=== PATIENT | female | born 1940 | race Caucasian/White ===

== ENCOUNTER 2016-07-12 14:56 | Inpatient (IN) | payer MEDICARE, OTHER ==
--- NOTE | ~2016-07-12 | IDS ---
Interim Discharge Summary [facility] [address] [place]. [address] NAME: BETTY DALY : 38 STATUS : DIS IN PAT#: [id number] AGE: 75 ADM/REG DATE : 07/12/16 MR#: [id number] REPORT SERV DATE: 07/17/16 DICTATED BY: SACHI HARDIN DATE: 07/17/16 REPORT STATUS : Draft TRANSCRIBED BY: MODL DATE: 07/17/16 ADMISSION DATE: 07/12/2016 DISCHARGE DATE: 07/13/2016 DISCHARGE DIAGNOSES: Resolved sepsis; urinary tract infection, resolved; shock; she has dementia and altered mental status; had adrenal insufficiency, on steroid taper; hypothyroidism; dysphagia; previous history of lymphoma, has been treated; anemia and thrombocytopenia. The patient was in the ICU. Further states, she was treated appropriately for Klebsiella with Azactam. She was given steroids. These improved. However, her mental status remains the same and it was felt that she was not going to make anymore marked improvements. She had Klebsiella and E coli sepsis. LABORATORY DATA: Today shows sodium 140, potassium 3.8, chloride 103, CO2 of 28, BUN 23, creatinine 0.94, glucose 157. H and H 7.6 and 21.7, white count 14,900, and platelet count 40,000. IMPRESSION: Persistent thrombocytopenia; anemia; history of lymphoma. Ejection fraction is 60%. She was getting ProcalAmine, her oral intake has been extremely poor for a long time. She is a [id number] status. This has been accepted by her . SOPHIE/ADITYA Sachi Hardin M.D. / [id number] CC: DO Deny Goodson MD
--- NOTE | ~2016-07-12 | HP ---
History And Physical [place] [id number] [facility] [place]. [address] NAME: BETTY DALY : 39 STATUS : ADM IN [facility]#: [id number] AGE: 75 ADM/REG DATE : 07/12/16 MR#: [id number] REPORT SERV DATE: 07/13/16 DICTATED BY: HEIDE KESSLER DATE: 07/12/16 REPORT STATUS : Draft TRANSCRIBED BY: MODMaribeth DATE: 07/12/16 DATE OF ADMISSION: 07/12/2016 CHIEF COMPLAINT: Confusion over 48 hours. HISTORY OF PRESENT ILLNESS: The patient is a 75-year-old female, who comes from [facility] with past medical history of lymphoma in remission, additionally Pseudomonas UTI in the past, chronic debility, chronic pain syndrome, restless leg, hypothyroidism, hypertension, who presents after having progressive decline particularly by her noticed over the last 48 to 72 hours. Is not quite acting herself. Decreased p.o. intake over the last few months, as the patient has chronic diarrhea episodes. reports that she has had a bout of C diff and feels this may be C diff related due to her malnutrition, symptoms of confusion or inappropriate verbal responses to questioning. The patient denies any chest pain or radiating symptoms. Has had rash at groin area requiring multiple clean ups with stool and urine. There are no worsening or relieving symptoms. Symptoms are still currently present. The patient does appear fairly weak and frail. REVIEW OF SYSTEMS: Difficult to obtain secondary to mental status. PAST MEDICAL HISTORY: Obtained from chart records noted for ORIF of left hip, right humeral fracture, lymphoma in remission, chronic pain, restless leg, hypothyroidism, and hypertension. SURGICAL HISTORY: ORIF and humeral fracture. Does have port placement on chest wall. FAMILY HISTORY: Stroke and gangrenous gallbladder. SOCIAL HISTORY: Transferred from [facility]. No smoking, alcohol, or illicits. . 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 ALLERGIES: PENICILLIN, SULFA, MORPHINE, AND CODEINE. MEDICATIONS: Amlodipine, aspirin, Lipitor, calcium citrate, Coreg, Nexium, fentanyl, ferrous sulfate, [place], Symax, Synthroid, melatonin, Remeron, multivitamin, nystatin, Klor-Con, and Mirapex. PHYSICAL EXAMINATION: VITAL SIGNS: Systolic 110/50s, but has had variable difficulty with obtaining repeat blood pressure secondary to history of surgeries on arms and pain, and requesting not to take anymore blood pressures on the arm per nurses; heart rate 70s; respiratory rate 16, afebrile. However, repeats systolics very fluctuant even on manual ranging from low counts of 60s up to 100s, but faint vascular secondary to edema. GENERAL: The patient is in no acute distress, but fairly quite disoriented. HEENT: Pale eyes. Sunken fontanelle. ENT, temporal wasting. Dry mucous membranes. RESPIRATORY: Rhonchi diffusely. History And Physical [place] [id number] [facility] [place] [place]. [address] NAME: BETTY DALY : 39 STATUS : ADM IN [facility]#: [id number] AGE: 75 ADM/REG DATE : 07/12/16 MR#: [id number] REPORT SERV DATE: 07/13/16 DICTATED BY: HEIED KESSLER DATE: 07/12/16 REPORT STATUS : Draft TRANSCRIBED BY: ADITYA DATE: 07/12/16 CV: Regular rate. Mildly baseline hypotensive side. GI: Mildly distended. No tenderness. : Does have groin rash bilaterally. MUSCULOSKELETAL: Does have bilateral edema in lower extremities. Does move extremities. SKIN: Warm and dry. LYMPH: No cervical or supraclavicular lymphadenopathy. HEME: Does have mild bruising sites. NEURO: Disoriented. Difficult to redirect. Difficult to assess full due to mental status, but eyes equal, symmetrical smile. PSYCH: Unable to assess mood and affect very well. LABORATORY DATA: CBC; WBC count 15.9, H and H 11.3 and 32.3, platelets 70. INR 1.7. Urinalysis, large leukocyte esterase and nitrites. CMP; sodium of 137, potassium 5.9, BUN and creatinine 22 and 0.8, calcium of 6.9, alkaline phosphatase 224. LFTs within normal limits. Troponin negative. CT abdomen and pelvis moderate to large right and moderate left pleural effusions with compressive atelectasis. Diffuse subcutaneous edema. Anasarca throughout the chest, abdomen, and pelvis. Small ascites in the abdomen. Hepatic steatosis. Brain without contrast. No acute infarct or hemorrhage. Mild atrophy and chronic white matter gliosis. Portable chest, low lung volumes. Bilateral perihilar and bibasilar atelectasis. Left Port-A-Cath. ASSESSMENT AND PLAN: 1. Urinary tract infection with Pseudomonas history. Start cefepime. Check lactate. 2. Acute metabolic encephalopathy. CT negative. Optimize electrolytes. Treat urinary tract infection. The patient does have variable blood pressure. We will need to optimize before allowing transfer out of emergency room. 3. Hypocalcemia. Check ionized calcium. Calcium gluconate given in the presence of hyperkalemia. 4. Hyperkalemia. Recheck the patient has been on p.o. supplementation, but in the setting of diarrhea, still should have been slightly low. Again give calcium gluconate and recheck, monitor. Hold p.o. replacements. 5. Thrombocytopenia. Unclear cause of decrease. We will check LDH, fibrinogen, PT, and PTT in the presence of UTI. We will need to monitor very closely. Low threshold for ICU. 6. Protein-calorie malnutrition. Moderate to severe. Ensure with meals. Prealbumin. We will give 5% albumin currently due to anasarca. 7. Pleural effusions. Followup chest x-rays. Albumin given right now. Does have protein- calorie malnutrition. 8. Lymphoma, in remission. The patient does have quite guarded prognosis at this time. Does have POLST form that is reflecting full code. Due to the patient's UTI history of Pseudomonas in the past, have given cefepime, but with constellation of encephalopathy, electrolyte abnormalities, thrombocytopenia, pleural effusions, and delicate blood pressure and vital sign, we may require ICU level if unable to stabilize in the emergency room. History And Physical [address] [address] NAME: BETTY DALY : 38 STATUS : ADM IN [facility]#: [id number] AGE: 75 ADM/REG DATE : 07/12/16 MR#: [id number] REPORT SERV DATE: 07/13/16 DICTATED BY: HEIDE KESSLER DATE: 07/12/16 REPORT STATUS : Draft TRANSCRIBED BY: ADITYA DATE: 07/12/16 DDHeriberto/ADITYA Heide Kessler MD / [id number] CC: DO Deny Goodson MD
[~2016-07-12 14:56] MED LIST: *UNABLE3; APRES50 PO; ASAB PO; BENICAR HCT1 TA2 PO; BISR PR; C5 PO; CARDURA1 MG PO; CAT1 PO; CEFT5 PO; CENTRUM PO; CENTRUM TAB1 TAB PO; CITRACAL PO; COREG PO; COREG25 PO; CYMBALTA60 PO; D.O.S.100 MG PO; DSS PO; DURA50 TOP; FERROUS SULF325 M1 PO; FLAG500TAB PO; FLORASTOR250 MG PO; FLUCON150 PO; FOSAMAX IV; GLUCCHONDR PO; HALF81 PO; JANTOVEN5 MG PO; KDUR20 PO; L20 PO; LEVAQUIN750 MG PO; LEVOTHYROXIN100 MCG PO; LEVOTHYROXIN75 MCG PO; LIPITOR20 PO; MELA3 PO; MIRAPEX1 MG PO; MIRAPEX250 PO; MOMUD PO; MVI PO; NAIL-EX2.5 MG PO; NEXIUM40 PO; NORCO1 TA1 PO; NORCO1 TA2 PO; NORV10 PO; NYSTATIN-TRIAMC15 GM TOP; PCET PO; PERCOCET1 TA4 PO; REQUIP1 PO; REQUIP2 PO; REQUIP5 PO; SOD CHLORIDE1 G1 PO; SYN075 PO; SYN1 PO; THERA M PLUS PO; ZOFRAN ODT4 MG PO
[2016-07-12 15:11] LABS: BASOPHILS 0.1 %; BASOPHILS ABSOLUTE 0.01 10/3/uL (0.0-0.16); EOSINOPHILS 0.2 %; EOSINOPHILS ABSOLUTE 0.03 10/3/uL (0.0-0.53); ER CBC TAT 0 Hrs 08 Mins; HEMATOCRIT 32.3 % (36.0-48.0); HEMOGLOBIN 11.3 g/dL (12.0-16.0); IMMATURE GRANULOCYTES 0.3 %; IMMATURE GRANULOCYTES ABSOLUTE 0.05 10/3/uL (0.0-0.11); LYMPHOCYTES 20.2 %; LYMPHOCYTES ABSOLUTE 3.21 10/3/uL (0.67-4.30); MANUAL DIFF NO %; MEAN CORPUSCULAR HEMOGLOB 32.1 pg (26.0-34.0); MEAN CORPUSCULAR VOLUME 91.8 fL (80-100); MEAN PLATELET VOLUME 12.1 fL (9.2-13.0); MONOCYTES 3.2 %; MONOCYTES ABSOLUTE 0.51 10/3/uL (0.21-1.20); NEUTROPHILS ABSOLUTE 12.07 10/3/uL (2.02-8.40); PLATELET COUNT 70 10/3/uL (150-400); RBC DISTRIBUTION WIDTH 17.4 % (12.0-16.0); RED CELL COUNT 3.52 10/6/uL (4.0-5.6); WHITE BLOOD CELLS 15.9 10/3/uL (4.5-10.5)
[2016-07-12 15:20] LABS: PARTIAL THROMBO TIME 44.8 SEC (22.5-37.2)
[2016-07-12 15:24] LABS: A/G RATIO 0.6 (0.7-1.9); ALBUMIN 1.1 G/DL (3.5-5.0); ALKALINE PHOSPHATASE 224 U/L (45-117); BUN (BLOOD UREA NITROGEN) 22 MG/DL (6-23); CALCIUM, SERUM 6.9 MG/DL (8.5-10.4); CHLORIDE, SERUM 106 MMOL/L (96-112); CO2 (CARBON DIOXIDE) 24 MMOL/L (24-34); GFR AFRICAN AMERICAN 83 ML/MIN (>=60); GFR NON AFRICAN AMERICAN 72 ML/MIN (>=60); GLOBULIN 1.7 G/DL (2.5-4.1); GLUCOSE, SERUM 66 MG/DL (60-99); POTASSIUM, SERUM 5.9 MMOL/L (3.5-5.3); SGOT(AST) 24 U/L (5-40); SGPT(ALT) 22 U/L (5-65); SODIUM, SERUM 137 MMOL/L (135-148); TOTAL BILIRUBIN 0.7 MG/DL (0-1.2); TOTAL PROTEIN 2.8 G/DL (6.0-8.5); TROPONIN I <0.02 NG/ML (<0.05)
[2016-07-12 15:25] LABS: INTERNATIONAL NORMAL RATI 1.7 UNITS (-)
[2016-07-12 15:27] LABS: ASCORBIC ACID (UR NOT ORDER) NEG (NEG); BILIRUBIN, URINE NEGATIVE (NEG); ER URINALYSIS TAT 0 Hrs 23 Mins; KETONE, URINE NEGATIVE (NEG); LEUKOCYTE ESTERASE(NOT OR LARGE (NEG); NITRITE (URINE) POS (NEG); WBC (NOT ORDERED) (RFLEX) > 182 (0-5)
[2016-07-12 15:30] LABS: PROTIME (NOT ORD) 19.8 SEC (12.0-14.5)
[2016-07-12 15:53] LABS: ANISOCYTOSIS 1+ (5-10/OIF) (0-5/OIF); PLATELET ESTIMATE DEC (ADEQUATE)
[2016-07-12 15:56] LABS: MICROCYTES 1+ (5-10/OIF) (0-5/OIF); POLYCHROMASIA 1+ (2-5/OIF) (0-1/OIF)
[2016-07-12 16:12] LABS: TEARDROP SHAPED RBCS OCC (0-2/OIF)
[2016-07-12] MEDS ORDERED: NORV10 PO (16:13)
[2016-07-12] MEDS ORDERED: HALF81 PO (16:13)
[2016-07-12] MEDS ORDERED: LIPITOR20 PO (16:13)
[2016-07-12] MEDS ORDERED: CITRACAL PO (16:14)
[2016-07-12] MEDS ORDERED: COREG25 PO (16:14)
[2016-07-12] MEDS ORDERED: DURA25 TOP (16:15)
[2016-07-12] MEDS ORDERED: FERROUS SULF325 M1 PO (16:17)
[2016-07-12] MEDS ORDERED: SYMAX-SL0.125 MG PO (16:24)
[2016-07-12] MEDS ORDERED: SYN075 PO (16:25)
[2016-07-12] MEDS ORDERED: MELA3 PO (16:27)
[2016-07-12] MEDS ORDERED: REM15 PO (16:28)
[2016-07-12] MEDS ORDERED: NYSTATIN-TRIAMC15 GM TOP (16:30)
[2016-07-12] MEDS ORDERED: NEXIUM40 PO (16:30)
[2016-07-12] MEDS ORDERED: MIRAPEX250 PO (16:31)
[2016-07-12] MEDS ORDERED: KLOR-CON M2020 MEQ PO (16:31)
[2016-07-12] MEDS ORDERED: NORCO1 TA1 PO (16:32)
[2016-07-12] MEDS ORDERED: MULTIVITAMI1 PO (16:32)
[2016-07-12 22:41] LABS: TROPONIN I 0.02 NG/ML (<0.05)
[2016-07-12 23:47] LABS: BUN (BLOOD UREA NITROGEN) 22 MG/DL (6-23); CALCIUM, SERUM 7.1 MG/DL (8.5-10.4); GFR AFRICAN AMERICAN 83 ML/MIN (>=60); GFR NON AFRICAN AMERICAN 72 ML/MIN (>=60)
[2016-07-12 23:49] LABS: CHLORIDE, SERUM 106 MMOL/L (96-112); CO2 (CARBON DIOXIDE) 21 MMOL/L (24-34); GLUCOSE, SERUM 81 MG/DL (60-99); PHOSPHORUS, SERUM 3.1 MG/DL (2.5-4.5); POTASSIUM, SERUM 5.6 MMOL/L (3.5-5.3); SODIUM, SERUM 138 MMOL/L (135-148)
[2016-07-13 00:20] LABS: PROCALCITONIN 0.38 ng/mL (<0.5)
[2016-07-13 04:52] LABS: BUN (BLOOD UREA NITROGEN) 22 MG/DL (6-23); CALCIUM, SERUM 7.2 MG/DL (8.5-10.4); CHLORIDE, SERUM 104 MMOL/L (96-112); CO2 (CARBON DIOXIDE) 22 MMOL/L (24-34); CREATININE 0.79 MG/DL (0.55-1.02); GFR AFRICAN AMERICAN 84 ML/MIN (>=60); GFR NON AFRICAN AMERICAN 73 ML/MIN (>=60); PHOSPHORUS, SERUM 3.5 MG/DL (2.5-4.5); POTASSIUM, SERUM 5.2 MMOL/L (3.5-5.3); SGOT(AST) 23 U/L (5-40); SGPT(ALT) 18 U/L (5-65); SODIUM, SERUM 136 MMOL/L (135-148); TOTAL BILIRUBIN 0.9 MG/DL (0-1.2); TROPONIN I <0.02 NG/ML (<0.05)
[2016-07-13 04:53] LABS: A/G RATIO 1.3 (0.7-1.9); ALKALINE PHOSPHATASE 211 U/L (45-117); GLOBULIN 1.5 G/DL (2.5-4.1); GLUCOSE, SERUM 136 MG/DL (60-99); TOTAL PROTEIN 3.5 G/DL (6.0-8.5)
[2016-07-13 05:43] LABS: INTERNATIONAL NORMAL RATI 1.8 UNITS (-); PROTIME (NOT ORD) 21.1 SEC (12.0-14.5)
[2016-07-13 05:44] LABS: PARTIAL THROMBO TIME 42.1 SEC (22.5-37.2)
[2016-07-14 02:05] LABS: BUN (BLOOD UREA NITROGEN) 20 MG/DL (6-23); CALCIUM, SERUM 7.3 MG/DL (8.5-10.4); CHLORIDE, SERUM 104 MMOL/L (96-112); CO2 (CARBON DIOXIDE) 21 MMOL/L (24-34); CREATININE 0.95 MG/DL (0.55-1.02); GFR AFRICAN AMERICAN 67 ML/MIN (>=60); GFR NON AFRICAN AMERICAN 58 ML/MIN (>=60); PHOSPHORUS, SERUM 4.1 MG/DL (2.5-4.5); POTASSIUM, SERUM 4.7 MMOL/L (3.5-5.3); SODIUM, SERUM 139 MMOL/L (135-148)
[2016-07-14 02:06] LABS: GLUCOSE, SERUM 180 MG/DL (60-99)
[2016-07-14 02:18] LABS: HEMOGLOBIN 9.4 g/dL (12.0-16.0); MEAN CORPUS HGB CONC 35.7 g/dL (32.0-36.0); MEAN CORPUSCULAR HEMOGLOB 32.6 pg (26.0-34.0); MEAN CORPUSCULAR VOLUME 91.3 fL (80-100); MEAN PLATELET VOLUME 11.8 fL (9.2-13.0); NUCLEATED RED BLOOD CELLS 0.5 /100WBC (0-0); PLATELET COUNT 70 10/3/uL (150-400); RBC DISTRIBUTION WIDTH 17.1 % (12.0-16.0); RED CELL COUNT 2.88 10/6/uL (4.0-5.6); WHITE BLOOD CELLS 20.7 10/3/uL (4.5-10.5)
[2016-07-14 02:20] LABS: HEMATOCRIT 26.3 % (36.0-48.0); MANUAL DIFF YES %
[2016-07-14 02:22] LABS: BAND NEUTROPHILS 2 %; LYMPHOCYTES 14 %; MONOCYTES 2 %; MONOCYTES ABSOLUTE (CALC) 0.41 10/3/uL (0.21-1.20); NEUTROPHILS ABSOLUTE (CALC) 17.39 10/3/uL (2.02-8.40); SEGMENTED NEUTROPHIL (0) 82 %; TOTAL NUCLEATED CELLS 100
[2016-07-14 02:23] LABS: ANISOCYTOSIS 1+ (5-10/OIF) (0-5/OIF); PLATELET ESTIMATE DEC (ADEQUATE)
[2016-07-14 02:47] LABS: TROPONIN I 0.03 NG/ML (<0.05)
[2016-07-14 04:53] LABS: HEMOGLOBIN 9.6 g/dL (12.0-16.0); MEAN CORPUS HGB CONC 35.6 g/dL (32.0-36.0); MEAN CORPUSCULAR HEMOGLOB 32.5 pg (26.0-34.0); MEAN CORPUSCULAR VOLUME 91.5 fL (80-100); MEAN PLATELET VOLUME 11.5 fL (9.2-13.0); NUCLEATED RED BLOOD CELLS 0.5 /100WBC (0-0); PLATELET COUNT 86 10/3/uL (150-400); RBC DISTRIBUTION WIDTH 17.2 % (12.0-16.0); RED CELL COUNT 2.95 10/6/uL (4.0-5.6); WHITE BLOOD CELLS 22.2 10/3/uL (4.5-10.5)
[2016-07-14 04:54] LABS: MANUAL DIFF YES %
[2016-07-14 04:59] LABS: BUN (BLOOD UREA NITROGEN) 19 MG/DL (6-23); CALCIUM, SERUM 7.5 MG/DL (8.5-10.4); CHLORIDE, SERUM 104 MMOL/L (96-112); CO2 (CARBON DIOXIDE) 19 MMOL/L (24-34); CREATININE 0.89 MG/DL (0.55-1.02); GFR AFRICAN AMERICAN 73 ML/MIN (>=60); GFR NON AFRICAN AMERICAN 63 ML/MIN (>=60); GLUCOSE, SERUM 175 MG/DL (60-99); POTASSIUM, SERUM 4.6 MMOL/L (3.5-5.3); SGOT(AST) 19 U/L (5-40); SGPT(ALT) 19 U/L (5-65); SODIUM, SERUM 137 MMOL/L (135-148); TOTAL BILIRUBIN 1.2 MG/DL (0-1.2)
[2016-07-14 05:05] LABS: A/G RATIO 2.1 (0.7-1.9); ALBUMIN 2.7 G/DL (3.5-5.0); ALKALINE PHOSPHATASE 186 U/L (45-117); ANISOCYTOSIS 1+ (5-10/OIF) (0-5/OIF); BAND NEUTROPHILS 10 %; GLOBULIN 1.3 G/DL (2.5-4.1); LYMPHOCYTES 19 %; LYMPHOCYTES ABSOLUTE (CALC) 4.22 10/3/uL (0.67-4.30); MONOCYTES 2 %; MONOCYTES ABSOLUTE (CALC) 0.44 10/3/uL (0.21-1.20); NEUTROPHILS ABSOLUTE (CALC) 17.54 10/3/uL (2.02-8.40); PLATELET ESTIMATE DEC (ADEQUATE); SEGMENTED NEUTROPHIL (0) 69 %; TOTAL NUCLEATED CELLS 100
[2016-07-14 05:06] LABS: BURR CELLS 1+ (3-10/OIF) (0-2/OIF)
[2016-07-15 04:45] LABS: MEAN CORPUSCULAR HEMOGLOB 32.8 pg (26.0-34.0); MEAN PLATELET VOLUME 11.4 fL (9.2-13.0); RBC DISTRIBUTION WIDTH 16.8 % (12.0-16.0); RED CELL COUNT 2.44 10/6/uL (4.0-5.6)
[2016-07-15 04:47] LABS: HEMATOCRIT 22.2 % (36.0-48.0); PLATELET COUNT 46 10/3/uL (150-400); WHITE BLOOD CELLS 12.4 10/3/uL (4.5-10.5)
[2016-07-15 04:48] LABS: MANUAL DIFF YES %
[2016-07-15 04:59] LABS: ALBUMIN 2.6 G/DL (3.5-5.0); BUN (BLOOD UREA NITROGEN) 20 MG/DL (6-23); CALCIUM, SERUM 7.5 MG/DL (8.5-10.4); CHLORIDE, SERUM 101 MMOL/L (96-112); CO2 (CARBON DIOXIDE) 22 MMOL/L (24-34); CREATININE 0.94 MG/DL (0.55-1.02); GFR AFRICAN AMERICAN 68 ML/MIN (>=60); GFR NON AFRICAN AMERICAN 59 ML/MIN (>=60); SODIUM, SERUM 136 MMOL/L (135-148)
[2016-07-15 05:00] LABS: GLUCOSE, SERUM 133 MG/DL (60-99); PHOSPHORUS, SERUM 2.7 MG/DL (2.5-4.5); POTASSIUM, SERUM 3.2 MMOL/L (3.5-5.3)
[2016-07-15 05:34] LABS: BAND NEUTROPHILS 7 %; IMMATURE GRANS ABSOLUTE (CALC) 0.12 10/3/uL (0.0-0.11); LYMPHOCYTES 14 %; LYMPHOCYTES ABSOLUTE (CALC) 1.74 10/3/uL (0.67-4.30); METAMYELOCYTES 1 %; MONOCYTES 4 %; NEUTROPHILS ABSOLUTE (CALC) 10.04 10/3/uL (2.02-8.40); SEGMENTED NEUTROPHIL (0) 74 %; TOTAL NUCLEATED CELLS 100; TOXIC GRANULATION SLT
[2016-07-15 05:35] LABS: VACUOLATED NEUTROPHILES OCC
[2016-07-15 05:36] LABS: RBC MORPHOLOGY NORM (NORMAL)
[2016-07-15 22:39] LABS: ALLENS TEST Pos; BE (BASE EXCESS) 0.1 MEQ/L (0 +/- 2.5); CARBOXYHEMOGLOBIN 0.6 % (0-3); DEVICE NC; HCO3 (ACTUAL BICARBONATE) 23.2 MEQ/L (23-27); HEMOBLOGIN CONTENT 8.4 G/DL (12-16); INSTRUMENT SERIAL # 8083; METHEMOGLOBIN 0.3 % (0-3); O2 CONTENT 11.3 VOL% (18-24); OPERATOR ID 33449; PCO2 (CO2 TENSION) 31 MMHG (35-45); PO2 (O2 TENSION) 81 MMHG (79-93); SAMPLE Arterial; pH 7.49 (7.37-7.43)
[2016-07-16 05:56] LABS: BASOPHILS 0.1 %; BASOPHILS ABSOLUTE 0.01 10/3/uL (0.0-0.16); EOSINOPHILS 0 %; HEMATOCRIT 21.7 % (36.0-48.0); HEMOGLOBIN 7.6 g/dL (12.0-16.0); IMMATURE GRANULOCYTES 1.8 %; IMMATURE GRANULOCYTES ABSOLUTE 0.25 10/3/uL (0.0-0.11); LYMPHOCYTES 15.3 %; LYMPHOCYTES ABSOLUTE 2.09 10/3/uL (0.67-4.30); MEAN CORPUSCULAR HEMOGLOB 31.8 pg (26.0-34.0); MEAN CORPUSCULAR VOLUME 90.8 fL (80-100); MEAN PLATELET VOLUME 10.5 fL (9.2-13.0); MONOCYTES 4.4 %; NEUTROPHILS 78.4 %; NEUTROPHILS ABSOLUTE 10.73 10/3/uL (2.02-8.40); RBC DISTRIBUTION WIDTH 16.6 % (12.0-16.0); RED CELL COUNT 2.39 10/6/uL (4.0-5.6); WHITE BLOOD CELLS 13.7 10/3/uL (4.5-10.5)
[2016-07-16 05:57] LABS: MANUAL DIFF NO %; PLATELET COUNT 49 10/3/uL (150-400)
[2016-07-16 06:22] LABS: POLYCHROMASIA 1+ (2-5/OIF) (0-1/OIF); TOXIC GRANULATION 1+
[2016-07-16 06:23] LABS: A/G RATIO 1.6 (0.7-1.9); ALBUMIN 2.4 G/DL (3.5-5.0); BUN (BLOOD UREA NITROGEN) 21 MG/DL (6-23); CALCIUM, SERUM 7.6 MG/DL (8.5-10.4); CHLORIDE, SERUM 102 MMOL/L (96-112); CO2 (CARBON DIOXIDE) 25 MMOL/L (24-34); CREATININE 1.11 MG/DL (0.55-1.02); GFR AFRICAN AMERICAN 56 ML/MIN (>=60); GFR NON AFRICAN AMERICAN 48 ML/MIN (>=60); GLOBULIN 1.5 G/DL (2.5-4.1); PHOSPHORUS, SERUM 2.2 MG/DL (2.5-4.5); POTASSIUM, SERUM 3.7 MMOL/L (3.5-5.3); SGOT(AST) 18 U/L (5-40); SGPT(ALT) 21 U/L (5-65); SODIUM, SERUM 137 MMOL/L (135-148); TOTAL BILIRUBIN 1.3 MG/DL (0-1.2); TOTAL PROTEIN 3.9 G/DL (6.0-8.5)
[2016-07-16 06:27] LABS: ALKALINE PHOSPHATASE 132 U/L (45-117); GLUCOSE, SERUM 160 MG/DL (60-99)
[2016-07-16 19:42] LABS: POTASSIUM, SERUM 2.9 MMOL/L (3.5-5.3)
[2016-07-17 03:54] LABS: HEMATOCRIT 21.7 % (36.0-48.0); HEMOGLOBIN 7.6 g/dL (12.0-16.0); MEAN CORPUSCULAR HEMOGLOB 32.1 pg (26.0-34.0); MEAN CORPUSCULAR VOLUME 91.6 fL (80-100); PLATELET COUNT 40 10/3/uL (150-400); RBC DISTRIBUTION WIDTH 16.7 % (12.0-16.0); RED CELL COUNT 2.37 10/6/uL (4.0-5.6); WHITE BLOOD CELLS 14.9 10/3/uL (4.5-10.5)
[2016-07-17 03:55] LABS: MANUAL DIFF YES %
[2016-07-17 04:17] LABS: BUN (BLOOD UREA NITROGEN) 23 MG/DL (6-23); CALCIUM, SERUM 7.8 MG/DL (8.5-10.4); CHLORIDE, SERUM 103 MMOL/L (96-112); CO2 (CARBON DIOXIDE) 28 MMOL/L (24-34); CREATININE 0.94 MG/DL (0.55-1.02); GFR AFRICAN AMERICAN 68 ML/MIN (>=60); GFR NON AFRICAN AMERICAN 59 ML/MIN (>=60); GLUCOSE, SERUM 157 MG/DL (60-99); PHOSPHORUS, SERUM 1.7 MG/DL (2.5-4.5); SODIUM, SERUM 140 MMOL/L (135-148)
[2016-07-17 04:17] LABS: BAND NEUTROPHILS 1 %; IMMATURE GRANS ABSOLUTE (CALC) 0.15 10/3/uL (0.0-0.11); LYMPHOCYTES 9 %; LYMPHOCYTES ABSOLUTE (CALC) 1.34 10/3/uL (0.67-4.30); METAMYELOCYTES 1 %; MONOCYTES 1 %; MONOCYTES ABSOLUTE (CALC) 0.15 10/3/uL (0.21-1.20); NEUTROPHILS ABSOLUTE (CALC) 13.26 10/3/uL (2.02-8.40); SEGMENTED NEUTROPHIL (0) 88 %; TARGET CELLS FEW (3-10/OIF) (0-1/OIF); TOTAL NUCLEATED CELLS 100
[2016-07-17 04:22] LABS: POTASSIUM, SERUM 3.8 MMOL/L (3.5-5.3)
== END 2016-07-17 14:10 | disposition hospice, inpatient (51) | DRG 871 ==
LOC: ER 14:56 → 6NO 16:41 → ER/OF 19:10 → MIC 19:39
PROVIDERS: Hospitalist; Internal Medicine Critical Care Medicine; Internal Medicine Pulmonary Disease; Student in an Organized Health Care Education/Training Program
PROC: 02HV33Z Insertion of Infusion Device into Superior Vena Cava, Percutaneous Approach (ICD-10-PCS; principal; 2016-07-13)
PROC: 4A02X4A Measurement of Cardiac Electrical Activity, Guidance, External Approach (ICD-10-PCS; 2016-07-13)
DX: A41.51 Sepsis due to Escherichia coli [E. coli] (principal); R65.21 Severe sepsis with septic shock; E43 Unspecified severe protein-calorie malnutrition; G93.41 Metabolic encephalopathy; J90 Pleural effusion, not elsewhere classified; N39.0 Urinary tract infection, site not specified; D69.6 Thrombocytopenia, unspecified; E27.40 Unspecified adrenocortical insufficiency; E44.0 Moderate protein-calorie malnutrition; A41.89 Other specified sepsis; B96.1 Klebsiella pneumoniae [K. pneumoniae] as the cause of diseases classified elsewhere; Z66 Do not resuscitate; E87.5 Hyperkalemia; E83.51 Hypocalcemia; I10 Essential (primary) hypertension; Z51.5 Encounter for palliative care; B96.5 Pseudomonas (aeruginosa) (mallei) (pseudomallei) as the cause of diseases classified elsewhere; G89.4 Chronic pain syndrome; G25.81 Restless legs syndrome; E03.9 Hypothyroidism, unspecified; Z85.72 Personal history of non-Hodgkin lymphomas; Z79.899 Other long term (current) drug therapy; Z88.0 Allergy status to penicillin; Z88.2 Allergy status to sulfonamides; Z88.5 Allergy status to narcotic agent; Z68.28 Body mass index [BMI] 28.0-28.9, adult
CPT/HCPCS: 36569; 70450; 71010; 74176; 80048; 80053; 80069; 81001; 82330; 82533; 82805; 83605; 83615; 83735; 84100; 84132; 84145; 84443; 84484; 85025; 85384; 85610; 85730; 87040; 87077; 87086; 87186; 87493; 87493-59; 87641; 93005; 93306; 94640; 96365; 96375; 97110-GP; 97161-GP; 97530-GP; 99285; A9270-GY; C1751; G8978-CN-GP; G8979-CM-GP; J0610; J0692; J1200; J1205; J1630; J1720; J2405; J3370; P9045; P9047